=== PATIENT | female | born 1985 | race Caucasian/White ===

== ENCOUNTER 2018-09-17 22:05 | Inpatient (IN) | payer MEDICAID ==
[~2018-09-17] VITALS: Ht 172.7 cm; Wt 91.8 kg
[~2018-09-17 22:05] MED LIST: CHOL10002 PO; METF10002 PO; OXYC5CAP2 PO
--- NOTE | 2018-09-17 22:47 | NUR ---
PT. TO ROOM FROM LOBBY
--- NOTE | 2018-09-17 22:50 | NUR ---
PT ASSISTED INTO GOWN IN ROOM AT THIS TIME. PT REPORTS HAVING EKG IN TRIAGE. AWAKE/ALERT AND W/O DISTRESS. PT PLACED ON CONTINUOUS HEART MONITOR AT THISTIME.
[2018-09-17] MEDS ORDERED: ACETAMINOPHEN 500 MG TABLET ONE (22:54)
[2018-09-17] MEDS ORDERED: ONDANSETRON 2MG/ML, 2ML ONE (22:54)
[2018-09-17] MEDS ORDERED: FAMOTIDINE 20 MG/2 ML ONE (22:55)
[2018-09-17] MEDS ORDERED: FAMOTIDINE 20 MG/2 ML IVP ONE (23:00)
[2018-09-17] MEDS ORDERED: SODIUM CHLORIDE FLUSH 10ML SYR IVF ONE (23:00)
[2018-09-17] MEDS ORDERED: ONDANSETRON 2MG/ML, 2ML IVPush ONE (23:00)
[2018-09-17] MEDS ORDERED: SODIUM CHLORIDE 0.9% 1,000ML IVBOLUS ONE (23:00)
[2018-09-17] MEDS ORDERED: ACETAMINOPHEN 500 MG TABLET PO ONE (23:00)
--- NOTE | 2018-09-17 23:13 | NUR ---
IV STARTED, 2 SETS OF BLOOD CULTURES HAVE BEEN DRAWN, IVF INFUSING, PT. MEDICATED PER MAR. AWAITING US. PT. DENIES NEEDS. FAMILY AT BS. ALL SAFETY MEASURES OBSERVED. CALL LIGHT IN REACH.
[2018-09-17 23:16] LABS: BASOPHILS % (AUTO) 0 % (0-1); EOSINOPHILS # (AUTO) 0.01 x10^3/uL (0-0.4); EOSINOPHILS % (AUTO) 0 % (1-7); LYMPHOCYTES # (AUTO) 0.35 x10^3/uL (1-3.4); LYMPHOCYTES % (AUTO) 4 % (22-44); MD NO; MEAN CORPUSCULAR HEMOGLOBIN 27.7 pg (27.0-34.8); MEAN CORPUSCULAR HGB CONC 32.7 g/dL (32.4-35.8); MEAN CORPUSCULAR VOLUME 84.6 fL (80-100); MEAN PLATELET VOLUME 9.7 fL (7.4-10.4); MONOCYTES # (AUTO) 0.29 x10^3/uL (0.2-0.8); MONOCYTES % (AUTO) 3 % (2-9); NEUTROPHILS # (AUTO) 8.25 x10^3/uL (1.8-6.8); NEUTROPHILS % (AUTO) 93 % (42-75); PLATELET COUNT 170 x10^3/uL (130-400); RED BLOOD COUNT 5.06 x10^6/uL (3.82-5.3); RED CELL DISTRIBUTION WIDTH 14.3 % (9.6-15.2)
[2018-09-17 23:27] LABS: INTERNATIONAL NORMALIZED RATIO 0.92 (0.93-1.1); PROTHROMBIN TIME 9.7 Seconds (9.6-11.5)
[2018-09-17 23:28] LABS: ALANINE AMINOTRANSFERASE 13 U/L (12-78); ALBUMIN 3.4 g/dL (3.4-5.0); ANION GAP 9 mmol/L (5-15); CALCIUM 8.6 mg/dL (8.5-10.1); CHLORIDE 102 mmol/L (98-107); CREATININE 0.62 mg/dL (0.55-1.02)
[2018-09-17 23:33] LABS: ALKALINE PHOSPHATASE 67 U/L (45-117); BILIRUBIN,TOTAL 0.9 mg/dL (0.2-1.0); TOTAL PROTEIN 7.3 g/dL (6.4-8.2)
--- NOTE | 2018-09-17 23:51 | NUR ---
IVF COMPLETED. HR REMAINS ELEVATED. PT. AMBULATORY TO BATHROOM NEXT DOOR. WILL UPDATE ERP.
--- NOTE | 2018-09-17 23:52 | NUR ---
PT. AWAITING US.
[2018-09-18] MEDS ORDERED: KETOROLAC 30 MG/1 ML IVPush ONE
--- NOTE | 2018-09-18 00:02 | NUR ---
DISCUSSED ELEVATED TEMP AND CONTINUED ELEVATED HR WITH DR. MCKINLEY. CALLED US TO LET THEM KNOW US IS BEING CANCELLED AND CT TO BE DONE INSTEAD. NEW ORDERS RECEIVED.
[2018-09-18] MEDS ORDERED: KETOROLAC 30 MG/1 ML ONE (00:11)
[2018-09-18 00:24] LABS: MICROSCOPIC NOT IND
[2018-09-18 00:27] LABS: CULTURE INDICATED? NO
[2018-09-18] MEDS ORDERED: OMNIPAQUE 350 MG/ML, 100ML BOTTLE ONE (00:40)
--- NOTE | 2018-09-18 01:18 | NUR ---
PT RESTING IN BED W/O DISTRESS. PT ON FULL MONITOR AT THIS TIME. PT TALKING W/ FAMILY. AWAITING MD RE-EVAL AT THIS TIME.
--- NOTE | 2018-09-18 02:13 | NUR ---
PT TO GO TO SURGERY PER ERMD. PT UNDRESSING IN PREPARATION AT THIS TIME. FAMILY UPDATED ON POC. PT SISTER LUIS GOMEZ LEFT PHONE NUMBER [phone]. VSS. AWAKE/ALERT AND W/O ACUTE DISTRESS.
[2018-09-18] MEDS ORDERED: CEFOTETAN PMX 2GM/50ML 50 ML IV ONE (02:30)
--- NOTE | 2018-09-18 02:34 | NUR ---
GAVE REPORT TO DONALD NATH WHO WILL BE RECEIVING PATIENT.
[2018-09-18] MEDS ORDERED: NS + 20MEQ KCL 1,000 ML IV ONE (02:41)
[2018-09-18] MEDS ORDERED: ONDANSETRON 2MG/ML, 2ML IVPush PRN (03:00)
[2018-09-18] MEDS ORDERED: SODIUM CHLORIDE FLUSH 10ML SYR IVF PRN (03:00)
[2018-09-18] MEDS ORDERED: MORPHINE SULFATE 4 MG/ML, 1ML IVPush PRN ×2 (03:00→06:00)
[2018-09-18 03:16] VITALS: BP 105/67
[2018-09-18 03:20] VITALS: BP 105/67
[2018-09-18] MEDS ORDERED: BUPIVACAINE/PF 0.25% ONE ×2 (03:34→07:54)
[2018-09-18] MEDS ORDERED: EPINEPHRINE 1 MG/ML, 1ML ONE ×2 (03:34→07:54)
[2018-09-18] MEDS ORDERED: MIDAZOLAM 1 MG/ML, 2ML ONE (05:36)
[2018-09-18] MEDS ORDERED: FENTANYL PF 250 MCG/5ML ONE (05:36)
[2018-09-18] MEDS ORDERED: SUCCINYLCHOLINE 20 MG/ML, 10ML ONE (05:37)
[2018-09-18] MEDS ORDERED: ROCURONIUM 10MG/ML,5ML ONE (05:37)
[2018-09-18] MEDS ORDERED: DEXAMETHASONE 4 MG/ML, 1ML ONE ×2 (05:37→05:39)
[2018-09-18] MEDS ORDERED: PROPOFOL 10 MG/ML, 20ML ONE (05:37)
[2018-09-18] MEDS ORDERED: ONDANSETRON 2MG/ML, 2ML ONE ×2 (05:37→05:39)
[2018-09-18] MEDS ORDERED: BUPIVACAINE/PF-EPI 0.25% 1:200K IM ONE (05:48)
[2018-09-18] MEDS ORDERED: PROMETHAZINE 12.5 MG SUPP PR PRN (06:00)
[2018-09-18] MEDS ORDERED: MIDAZOLAM 1 MG/ML, 2ML IV PRN (06:00)
[2018-09-18] MEDS ORDERED: LABETALOL 5MG/ML, 20ML IV PRN (06:00)
[2018-09-18] MEDS ORDERED: ONDANSETRON ODT 8 MG PO PRN (06:00)
[2018-09-18] MEDS ORDERED: ONDANSETRON 2MG/ML, 2ML IV PRN ×2 (06:00→08:30)
[2018-09-18] MEDS ORDERED: hydrALAzine 20 MG/ML, 1ML IV PRN (06:00)
[2018-09-18] MEDS ORDERED: PROMETHAZINE 25 MG/ML, 1ML IV PRN (06:00)
[2018-09-18] MEDS ORDERED: OXYcodone 5 MG/5 ML ORAL.SOL UDC PO PRN (06:00)
[2018-09-18] MEDS ORDERED: ACETAMINOPHEN 325 MG TABLET PO PRN (06:00)
[2018-09-18] MEDS ORDERED: DIAZEPAM 5 MG/ML, 2ML IVPush PRN (06:00)
[2018-09-18] MEDS ORDERED: ALBUTEROL SULFATE 2.5 MG/3 ML NPPB PRN (06:00)
[2018-09-18] MEDS ORDERED: EPHEDRINE 50 MG/ML, 1ML IVPush PRN (06:00)
[2018-09-18] MEDS ORDERED: HALOPERIDOL 5 MG/ML IV PRN (06:00)
[2018-09-18] MEDS ORDERED: MEPERIDINE/PF 25MG/0.5ML IVPush PRN (06:00)
[2018-09-18] MEDS ORDERED: SUGAMMADEX 200 MG/2 ML IVPush ONE (06:16)
[2018-09-18] MEDS ORDERED: FENTANYL PF 100 MCG/2ML ONE ×2 (06:40→07:04)
[2018-09-18] MEDS ORDERED: OXYcodone 5 MG/5 ML ORAL.SOL UDC ONE (07:05)
[2018-09-18] MEDS ORDERED: HYDROmorphone 2 MG/ML, 1ML ONE (07:05)
[2018-09-18] MEDS: HYDROmorphone 2 MG/ML, 1ML IVPush PRN ×3 (07:07→07:22)
[2018-09-18] MEDS: FENTANYL PF 100 MCG/2ML IV PRN ×2 (07:08→07:15)
[2018-09-18 08:02] VITALS: BP 144/84
[2018-09-18] MEDS ORDERED: ENTER SLIDING SCALE INSULIN IF ORDERED XX PRN (08:30)
[2018-09-18] MEDS ORDERED: [UNRECOGNIZED DRUG - REMARK] MC SCH (08:30)
[2018-09-18] MEDS ORDERED: SODIUM CHLORIDE 0.9%, 500ML IV PRN (08:30)
[2018-09-18] MEDS ORDERED: DIPHENHYDRAMINE 50 MG/ML, 1ML IV PRN (08:30)
[2018-09-18] MEDS ORDERED: DIPHENHYDRAMINE 25 MG CAPSULE PO PRN (08:30)
[2018-09-18] MEDS: SODIUM CHLORIDE FLUSH 10ML SYR IVF SCH ×2 (10:35→20:21)
[2018-09-18] MEDS: HYDROcodone/APAP 5/325 TABLET PO PRN ×3 (11:17→19:57)
[2018-09-18] MEDS: LACTATED RINGERS 1,000 ML IV SCH (11:18)
[2018-09-18] MEDS: INSULIN REGULAR 100 UNITS/ML, 3ML VIAL SQ-INSULIN SCH ×3 (11:18→22:28)
[2018-09-18 13:40] VITALS: BP 105/62
[2018-09-18] MEDS: metFORMIN 500 MG TABLET PO SCH (15:58)
[2018-09-18 20:06] VITALS: BP 104/66
[2018-09-19 00:04] VITALS: BP 106/68
[2018-09-19] MEDS: HYDROcodone/APAP 5/325 TABLET PO PRN ×2 (00:10→04:32)
[2018-09-19] MEDS: LACTATED RINGERS 1,000 ML IV SCH ×2 (00:11→12:19)
[2018-09-19 04:07] VITALS: BP 105/65
[2018-09-19 05:35] LABS: MEAN CORPUSCULAR HEMOGLOBIN 28.2 pg (27.0-34.8); MEAN CORPUSCULAR HGB CONC 33.2 g/dL (32.4-35.8); MEAN CORPUSCULAR VOLUME 84.9 fL (80-100); MEAN PLATELET VOLUME 9.5 fL (7.4-10.4); PLATELET COUNT 163 x10^3/uL (130-400); RED BLOOD COUNT 3.95 x10^6/uL (3.82-5.3); RED CELL DISTRIBUTION WIDTH 14.6 % (9.6-15.2)
[2018-09-19 06:20] LABS: BASOPHILS # (AUTO) 0.02 x10^3/uL (0-0.1); BASOPHILS % (AUTO) 0 % (0-1); EOSINOPHILS # (AUTO) 0.03 x10^3/uL (0-0.4); EOSINOPHILS % (AUTO) 0 % (1-7); LYMPHOCYTES % (AUTO) 17 % (22-44); MD SCAN; MONOCYTES # (AUTO) 0.92 x10^3/uL (0.2-0.8); MONOCYTES % (AUTO) 7 % (2-9); NEUTROPHILS # (AUTO) 9.46 x10^3/uL (1.8-6.8); NEUTROPHILS % (AUTO) 75 % (42-75)
[2018-09-19] MEDS: ENOXAPARIN 40 MG/0.4 ML SQ SCH (06:50)
[2018-09-19] MEDS: INSULIN REGULAR 100 UNITS/ML, 3ML VIAL SQ-INSULIN SCH ×4 (06:51→21:57)
[2018-09-19] MEDS: metFORMIN 500 MG TABLET PO SCH ×2 (07:27→07:28)
[2018-09-19 07:56] VITALS: BP 115/73
[2018-09-19] MEDS: OXYcodone IR 5MG TABLET PO PRN ×5 (08:20→23:34)
[2018-09-19] MEDS: SODIUM CHLORIDE FLUSH 10ML SYR IVF SCH ×2 (08:20→21:00)
[2018-09-19 08:45] LABS: ALANINE AMINOTRANSFERASE 38 U/L (12-78); ALBUMIN 2.7 g/dL (3.4-5.0); ANION GAP 6 mmol/L (5-15); CALCIUM 7.8 mg/dL (8.5-10.1); CHLORIDE 107 mmol/L (98-107); CREATININE 0.59 mg/dL (0.55-1.02)
[2018-09-19 08:47] LABS: ALKALINE PHOSPHATASE 61 U/L (45-117); BILIRUBIN,TOTAL 0.7 mg/dL (0.2-1.0)
[2018-09-19 13:20] VITALS: BP 125/68
[2018-09-19 18:45] VITALS: BP 126/78
[2018-09-19] MEDS ORDERED: ACETAMINOPHEN 650 MG SUPP PR PRN (20:30)
[2018-09-19] MEDS: ACETAMINOPHEN 325 MG TABLET PO PRN (21:20)
[2018-09-20 02:19] VITALS: BP 107/69
[2018-09-20] MEDS: OXYcodone IR 5MG TABLET PO PRN ×6 (02:50→20:15)
[2018-09-20] MEDS: ACETAMINOPHEN 325 MG TABLET PO PRN ×3 (02:50→16:48)
[2018-09-20] MEDS: LACTATED RINGERS 1,000 ML IV SCH ×2 (03:00→08:18)
[2018-09-20] MEDS: ENOXAPARIN 40 MG/0.4 ML SQ SCH (06:41)
[2018-09-20] MEDS: INSULIN REGULAR 100 UNITS/ML, 3ML VIAL SQ-INSULIN SCH ×4 (07:00→23:00)
[2018-09-20 07:22] VITALS: BP 104/66
[2018-09-20] MEDS: metFORMIN 500 MG TABLET PO SCH ×2 (07:39→07:40)
[2018-09-20] MEDS: PIPERACILLIN/TAZO/PMX 3.375GM 50 ML IV SCH ×3 (08:18→20:15)
[2018-09-20] MEDS: SODIUM CHLORIDE FLUSH 10ML SYR IVF SCH ×2 (08:23→20:15)
[2018-09-20 08:24] LABS: BASOPHILS # (AUTO) 0.03 x10^3/uL (0-0.1); BASOPHILS % (AUTO) 0 % (0-1); EOSINOPHILS % (AUTO) 1 % (1-7); LYMPHOCYTES # (AUTO) 1.62 x10^3/uL (1-3.4); LYMPHOCYTES % (AUTO) 20 % (22-44); MD NO; MEAN CORPUSCULAR HEMOGLOBIN 27.4 pg (27.0-34.8); MEAN CORPUSCULAR HGB CONC 32.5 g/dL (32.4-35.8); MEAN CORPUSCULAR VOLUME 84.4 fL (80-100); MEAN PLATELET VOLUME 9.4 fL (7.4-10.4); MONOCYTES # (AUTO) 0.81 x10^3/uL (0.2-0.8); MONOCYTES % (AUTO) 10 % (2-9); NEUTROPHILS # (AUTO) 5.69 x10^3/uL (1.8-6.8); NEUTROPHILS % (AUTO) 69 % (42-75); PLATELET COUNT 133 x10^3/uL (130-400); RED BLOOD COUNT 3.59 x10^6/uL (3.82-5.3); RED CELL DISTRIBUTION WIDTH 14.6 % (9.6-15.2)
[2018-09-20 08:26] LABS: HEMOGRAM NOTE RECHECKED
[2018-09-20 08:30] LABS: ALBUMIN 2.1 g/dL (3.4-5.0); ANION GAP 6 mmol/L (5-15); CALCIUM 7.7 mg/dL (8.5-10.1); CHLORIDE 106 mmol/L (98-107)
[2018-09-20 08:34] LABS: ALANINE AMINOTRANSFERASE 23 U/L (12-78); ALKALINE PHOSPHATASE 55 U/L (45-117); CREATININE 0.43 mg/dL (0.55-1.02); TOTAL PROTEIN 5.4 g/dL (6.4-8.2)
[2018-09-20 10:45] LABS: MICROSCOPIC AUTO
[2018-09-20 12:35] VITALS: BP 114/73
[2018-09-20 20:30] VITALS: BP 116/74
[2018-09-21] MEDS: OXYcodone IR 5MG TABLET PO PRN ×6 (00:33→21:47)
[2018-09-21] MEDS: PIPERACILLIN/TAZO/PMX 3.375GM 50 ML IV SCH ×4 (02:05→19:44)
[2018-09-21 02:15] VITALS: BP 122/77
[2018-09-21] MEDS: ACETAMINOPHEN 325 MG TABLET PO PRN (04:34)
[2018-09-21 07:00] VITALS: BP 102/58
[2018-09-21] MEDS: ENOXAPARIN 40 MG/0.4 ML SQ SCH (08:46)
[2018-09-21] MEDS: metFORMIN 500 MG TABLET PO SCH ×2 (08:46→18:06)
[2018-09-21] MEDS: INSULIN REGULAR 100 UNITS/ML, 3ML VIAL SQ-INSULIN SCH ×4 (08:47→23:07)
[2018-09-21] MEDS: SODIUM CHLORIDE FLUSH 10ML SYR IVF SCH ×2 (08:47→19:46)
[2018-09-21] MEDS: LACTATED RINGERS 1,000 ML IV SCH (11:44)
[2018-09-21 11:51] LABS: BASOPHILS # (AUTO) 0.05 x10^3/uL (0-0.1); BASOPHILS % (AUTO) 1 % (0-1); EOSINOPHILS # (AUTO) 0.18 x10^3/uL (0-0.4); EOSINOPHILS % (AUTO) 2 % (1-7); LYMPHOCYTES # (AUTO) 1.41 x10^3/uL (1-3.4); LYMPHOCYTES % (AUTO) 18 % (22-44); MD NO; MEAN CORPUSCULAR HEMOGLOBIN 28.1 pg (27.0-34.8); MEAN CORPUSCULAR HGB CONC 32.7 g/dL (32.4-35.8); MEAN CORPUSCULAR VOLUME 85.8 fL (80-100); MEAN PLATELET VOLUME 9.2 fL (7.4-10.4); MONOCYTES # (AUTO) 0.79 x10^3/uL (0.2-0.8); MONOCYTES % (AUTO) 10 % (2-9); NEUTROPHILS # (AUTO) 5.38 x10^3/uL (1.8-6.8); NEUTROPHILS % (AUTO) 69 % (42-75); PLATELET COUNT 170 x10^3/uL (130-400); RED BLOOD COUNT 3.68 x10^6/uL (3.82-5.3); RED CELL DISTRIBUTION WIDTH 14.4 % (9.6-15.2)
[2018-09-21 12:04] LABS: ANION GAP 6 mmol/L (5-15); CALCIUM 7.8 mg/dL (8.5-10.1); CHLORIDE 106 mmol/L (98-107); CREATININE 0.56 mg/dL (0.55-1.02)
[2018-09-21 13:45] VITALS: BP 129/80
[2018-09-21 19:35] VITALS: BP 116/76
[2018-09-22] MEDS: OXYcodone IR 5MG TABLET PO PRN ×5 (01:23→18:09)
[2018-09-22 02:05] VITALS: BP 109/70
[2018-09-22] MEDS: PIPERACILLIN/TAZO/PMX 3.375GM 50 ML IV SCH ×3 (03:33→13:42)
[2018-09-22] MEDS: LACTATED RINGERS 1,000 ML IV SCH ×2 (03:37→13:43)
[2018-09-22 05:43] LABS: BASOPHILS # (AUTO) 0.02 x10^3/uL (0-0.1); BASOPHILS % (AUTO) 0 % (0-1); EOSINOPHILS # (AUTO) 0.17 x10^3/uL (0-0.4); EOSINOPHILS % (AUTO) 2 % (1-7); LYMPHOCYTES # (AUTO) 1.61 x10^3/uL (1-3.4); LYMPHOCYTES % (AUTO) 22 % (22-44); MD NO; MEAN CORPUSCULAR HEMOGLOBIN 27.6 pg (27.0-34.8); MEAN CORPUSCULAR HGB CONC 32.6 g/dL (32.4-35.8); MEAN CORPUSCULAR VOLUME 84.6 fL (80-100); MONOCYTES # (AUTO) 0.73 x10^3/uL (0.2-0.8); MONOCYTES % (AUTO) 10 % (2-9); NEUTROPHILS # (AUTO) 4.79 x10^3/uL (1.8-6.8); NEUTROPHILS % (AUTO) 66 % (42-75); PLATELET COUNT 168 x10^3/uL (130-400); RED BLOOD COUNT 3.36 x10^6/uL (3.82-5.3); RED CELL DISTRIBUTION WIDTH 14.2 % (9.6-15.2)
[2018-09-22 05:56] LABS: CHLORIDE 104 mmol/L (98-107)
[2018-09-22 06:16] LABS: ALANINE AMINOTRANSFERASE 15 U/L (12-78); ALBUMIN 1.9 g/dL (3.4-5.0); ALKALINE PHOSPHATASE 71 U/L (45-117); ANION GAP 7 mmol/L (5-15); BILIRUBIN,TOTAL 0.3 mg/dL (0.2-1.0); CALCIUM 8.1 mg/dL (8.5-10.1); CREATININE 0.42 mg/dL (0.55-1.02); TOTAL PROTEIN 5.3 g/dL (6.4-8.2)
[2018-09-22 07:01] VITALS: BP 117/70
[2018-09-22] MEDS: INSULIN REGULAR 100 UNITS/ML, 3ML VIAL SQ-INSULIN SCH ×3 (07:14→16:00)
[2018-09-22] MEDS: metFORMIN 500 MG TABLET PO SCH ×2 (08:20→17:38)
[2018-09-22] MEDS: ENOXAPARIN 40 MG/0.4 ML SQ SCH (08:20)
[2018-09-22] MEDS: SODIUM CHLORIDE FLUSH 10ML SYR IVF SCH (08:21)
[2018-09-22 13:57] VITALS: BP 125/76
== END 2018-09-22 18:30 | disposition home or self-care (01) | DRG 854 ==
LOC: ED 23:59 → EDIP 09-18 02:08 → 4NOR 09-18 03:15
PROVIDERS: ADMIT Surgery; ATTEND Surgery
PROC: 0FJ44ZZ Inspection of Gallbladder, Percutaneous Endoscopic Approach (ICD-10-PCS; 2018-09-18)
PROC: 0T9B70Z Drainage of Bladder with Drainage Device, Via Natural or Artificial Opening (ICD-10-PCS; 2018-09-18)
PROC: 0FT40ZZ Resection of Gallbladder, Open Approach (ICD-10-PCS; principal; 2018-09-18 04:00)
DX: A41.9 Sepsis, unspecified organism (principal); K80.00 Calculus of gallbladder with acute cholecystitis without obstruction; E11.9 Type 2 diabetes mellitus without complications; K66.0 Peritoneal adhesions (postprocedural) (postinfection); K82.8 Other specified diseases of gallbladder; Z53.31 Laparoscopic surgical procedure converted to open procedure; R00.0 Tachycardia, unspecified
CPT/HCPCS: 36415; 74018; 82247; 96361; 99285; J3490; 71045; 74177; 80048; 80053; 81001; 81003; 82962; 83605; 83690; 84703; 85025; 85610; 87040; 88304; 93005; 96374; 96375; G0378; J0171; J1100; J1170; J1650; J1815; J1885; J2250; J2405; J2543; J2704; J3010; J3480; Q9967; J0330; J2270; J7030; J7120

== ENCOUNTER 2020-10-29 12:03 | Outpatient (CLI) | payer MEDICAID | END 2020-10-29 23:59 | disposition home or self-care (01) | LOC: WOUND 12:03 | PROVIDERS: ATTEND Internal Medicine | DX: O90.0 Disruption of cesarean delivery wound (principal); O90.2 Hematoma of obstetric wound; E11.628 Type 2 diabetes mellitus with other skin complications; I25.2 Old myocardial infarction; L60.0 Ingrowing nail; Z79.4 Long term (current) use of insulin; Z93.3 Colostomy status; Y83.8 Other surgical procedures as the cause of abnormal reaction of the patient, or of later complication, without mention of misadventure at the time of the procedure; Y92.238 Other place in hospital as the place of occurrence of the external cause | CPT/HCPCS: 97597; 99213 ==

== ENCOUNTER 2020-11-01 13:02 | Outpatient (CLI) | payer MEDICAID | END 2020-11-01 23:59 | disposition home or self-care (01) | LOC: WOUND 13:02 | PROVIDERS: ATTEND Internal Medicine | DX: O90.0 Disruption of cesarean delivery wound (principal); O90.2 Hematoma of obstetric wound; E11.628 Type 2 diabetes mellitus with other skin complications; I25.2 Old myocardial infarction; L60.0 Ingrowing nail; Z79.4 Long term (current) use of insulin; Z93.3 Colostomy status; Y83.8 Other surgical procedures as the cause of abnormal reaction of the patient, or of later complication, without mention of misadventure at the time of the procedure | CPT/HCPCS: 97597 ==

== ENCOUNTER 2020-11-10 14:06 | Outpatient (CLI) | payer MEDICAID | END 2020-11-10 23:59 | disposition home or self-care (01) | LOC: WOUND 14:06 | PROVIDERS: ATTEND Internal Medicine | DX: O90.0 Disruption of cesarean delivery wound (principal); O90.2 Hematoma of obstetric wound; E11.628 Type 2 diabetes mellitus with other skin complications; I25.2 Old myocardial infarction; L60.0 Ingrowing nail; Z79.4 Long term (current) use of insulin; Z93.3 Colostomy status; Y83.8 Other surgical procedures as the cause of abnormal reaction of the patient, or of later complication, without mention of misadventure at the time of the procedure | CPT/HCPCS: 97597 ==

== ENCOUNTER 2020-11-17 14:00 | Outpatient (CLI) | payer MEDICAID | END 2020-11-17 23:59 | disposition home or self-care (01) | LOC: WOUND 14:00 | PROVIDERS: ATTEND Internal Medicine | DX: O90.0 Disruption of cesarean delivery wound (principal); O90.2 Hematoma of obstetric wound; E11.628 Type 2 diabetes mellitus with other skin complications; I25.2 Old myocardial infarction; L60.0 Ingrowing nail; Z79.4 Long term (current) use of insulin; Z93.3 Colostomy status; Y83.8 Other surgical procedures as the cause of abnormal reaction of the patient, or of later complication, without mention of misadventure at the time of the procedure | CPT/HCPCS: 99213 ==

== ENCOUNTER → 2020-11-24 | Outpatient (CLI) | payer MEDICAID | END | disposition home or self-care (01) | LOC: WOUND 08:00 | PROVIDERS: ATTEND Internal Medicine | DX: O90.0 Disruption of cesarean delivery wound (principal); O90.2 Hematoma of obstetric wound; E11.628 Type 2 diabetes mellitus with other skin complications; I25.2 Old myocardial infarction; L60.0 Ingrowing nail; Z79.4 Long term (current) use of insulin; Z93.3 Colostomy status | CPT/HCPCS: 97597 ==

== ENCOUNTER → 2020-12-01 | Outpatient (CLI) | payer MEDICAID | END | disposition home or self-care (01) | LOC: WOUND 09:20 | PROVIDERS: ATTEND Internal Medicine | DX: O90.0 Disruption of cesarean delivery wound (principal); O90.2 Hematoma of obstetric wound; E11.628 Type 2 diabetes mellitus with other skin complications; I25.2 Old myocardial infarction; L60.0 Ingrowing nail; Z79.4 Long term (current) use of insulin; Z93.3 Colostomy status ==